=== PATIENT | female | born 1990 | race Caucasian/White ===

== ENCOUNTER 2018-06-28 19:36 | Emergency (ER) | payer BC, OTHER ==
[2018-06-28 19:49] VITALS: BP 132/83; PULSE 100; RESP 20; TEMP 98.3; O2SAT 98
[2018-06-28] MEDS ORDERED: Neomycin/Polymyxin/Hydrocort Otic Soln BOTTLE AU STA (19:59)
[2018-06-28] MEDS ORDERED: Amoxicillin-Clav 875-125 mg Tab PO STA (19:59)
[2018-06-28] MEDS ORDERED: Amoxicillin-Clav 875-125 mg Tab PO ONE (20:09)
--- NOTE | 2018-06-28 20:12 | C.PDOC ---
History Of Present Illness 28 y/o female present to the ER complaining of pain to the left ear that has been ongoing for 2-3 days. She admits to having sick contacts, mother and son, at home who experienced similar symptoms. The patient has been sick with a runny nose for the past week. [place] [facility] and reports that the ear ache began after the plane ride back home for four days ago. The patient denies any associated fever, vomiting, diarrhea, SOB or chest pain. Time Seen by Provider: 06/28/18 19:42 Chief Complaint (Nursing): ENT Problem History Per: Patient History/Exam Limitations: None Onset/Duration Of Symptoms: Days Current Symptoms Are (Timing): Still Present Quality (Ear): Other (pain with moving of pinna) Anticoagulant/Antiplatlet Use?: Yes (to [facility]) Past Medical History Reviewed: Historical Data, Nursing Documentation, Vital Signs Vital Signs: Last Vital Signs Temp 98.3 F 06/28/18 19:45 Pulse 100 H 06/28/18 19:45 Resp 20 06/28/18 19:45 BP 132/83 06/28/18 19:45 Pulse Ox 98 06/28/18 20:20 - Medical History PMH: No Chronic Diseases Surgical History: Tonsillectomy Family History: States: Unknown Family Hx - Social History Hx Tobacco Use: No Hx Alcohol Use: No Hx Substance Use: No - Immunization History Hx Tetanus Toxoid Vaccination: Yes Hx Influenza Vaccination: No Hx Pneumococcal Vaccination: No Review Of Systems Except As Marked, All Systems Reviewed And Found Negative. Constitutional: Negative for: Fever Cardiovascular: Negative for: Chest Pain Respiratory: Negative for: Shortness of Breath Gastrointestinal: Negative for: Vomiting, Diarrhea Physical Exam - Physical Exam Appears: Well, Non-toxic, No Acute Distress Skin: Normal Color, Warm, No Rash Head: Atraumatic, Normacephalic Eye(s): bilateral: Normal Inspection, PERRL, EOMI Ear(s): Left: Normal, Right: TM Erythema (edematous external canal) Oral Mucosa: Moist Throat: Normal Neck: Normal ROM, Supple Chest: Symmetrical Cardiovascular: Rhythm Regular, No Murmur Respiratory: Normal Breath Sounds, No Rales, No Rhonchi, No Stridor, No Wheezing Extremity: Normal ROM, No Swelling Extremity: Bilateral: Atraumatic Pulses: Left Radial: Normal, Right Radial: Normal Neurological/Psych: Oriented x3, Normal Speech, Normal Cranial Nerves Gait: Steady ED Course And Treatment O2 Sat by Pulse Oximetry: 98 (RA) Pulse Ox Interpretation: Normal Medical Decision Making Medical Decision Making: Patient is medicated for infection with Augmentin 875 MG-125 MG tab, Cortisporin Otic Soln 4 drop, and Motrin tab 600 mg PO. The patient is stable for discharge. Disposition - Disposition Referrals: Viktor Cleary MD [Staff Provider] - Disposition: HOME/ ROUTINE Disposition Time: 20:20 Condition: GOOD Additional Instructions: follow up with the medical doctor within 1-2 days, Return if worsened. 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 - Scribe Statement The provider has reviewed the documentation as recorded by the Scribe (Migdalia Mahoney) All medical record entries made by the Scribe were at my direction and personally dictated by me. I have reviewed the chart and agree that the record accurately reflects my personal performance of the history, physical exam, medical decision making, and the department course for this patient. I have also personally directed, reviewed, and agree with the discharge instructions and disposition.
== END 2018-06-28 20:33 | disposition home or self-care (01) ==
LOC: C.ER 19:36
DX: H60.90 Unspecified otitis externa, unspecified ear (principal)